=== PATIENT | male | born 1965 | race Two or more races ===

== ENCOUNTER → 2018-07-25 | Day surgery (SDC) | payer OTHER ==
--- NOTE | 2018-07-23 14:31 | Diagnostic Imaging Report ---
EXAM: ABDOMEN-1VIEW (KUB) DATE: 07/23/2018 1:02 PM INDICATION: Kidney stone COMPARISON: None FINDINGS: 2 supine views of the abdomen show a normal distribution of air in the small and large bowel. A right double-J ureteral stent extends from level of the right kidney to the bladder. There is a 1.5 x 0.8 cm calculus adjacent to the proximal aspect of the stent, at or just below the level of the renal pelvis. There is a 0.4 cm calcification projected on the left kidney, likely an intrarenal calculus. Calcifications in left hemipelvis are compatible with phleboliths. A focal sclerotic density in the proximal right femur likely represents a bone island. No acute bony abnormality. Partial sacralization of L5 on the left with pseudoarthrosis. IMPRESSION: 1. No bowel dilatation or evidence for bowel obstruction. 2. Right double-J ureteral stent. A 1.5 x 0.8 cm calculus adjacent to the proximal aspect of the stent is either in the renal pelvis or proximal right ureter. 3. 0.4 cm calculus in the left kidney. Signed by: Dr. Janes Prater M.D. on 07/23/2018 2:28 PM
[~2018-07-25] MED LIST: ACETAMINOPHEN325 M1 PO; CEFTRIAXONE SOD 1 GM/NS 50 ML 50 ML IV ONE; DEXAMETHASONE SOD PHOS INJ 4 MG/ML VIAL ONE; FENTANYL CITRATE/PF 100MCG/2 ML INJ ONE; FLOMAX0.4 MG PO; HYDRALAZINE HCL 20 MG/ML VIAL ONE; IOPAMIDOL 610MG/1ML 300 MG/ML VIAL IV ONE; LIDOCAINE HCL 2% LOCAL INJ 5 ML SDV VIAL INJ ONE; METOCLOPRAMIDE HCL 10 MG/2ML VIAL ONE; MIDAZOLAM HCL 2 MG/2 ML VIAL ONE; ONDANSETRON HCL INJ 2MG/ML 2ML 2 MG/ML VIAL ONE; PROPOFOL IV EMULSION 10 MG/ML 20 ML VIAL ONE; SEVOFLURANE INHAL SOLN 250 ML PEN BTL ONE
--- OUTSIDE RECORDS SUMMARY | 2018-07-25 05:53 | XMS REPORT ---
Author [facility] Address Unknown Phone Unavailable Care Team Providers Care Stiff Straw Hat Washer Name Role Phone TAISHA AVILES Unavailable Unavailable Payers Payer Name Policy Type Policy Number Effective Date Expiration Date Problems This patient has no known problems. Allergies, Adverse Reactions, Alerts This patient has no known allergies or adverse reactions. Medications This patient has no known medications. Encounters Start Date/Time End Date/Time Encounter Type Admission Type Attending [facility] Care Department Encounter ID 2018-07-17 22:42:00 2018-07-17 22:42:00 Outpatient [facility] [id number] 2018-07-15 11:48:00 2018-07-15 11:48:00 Outpatient [facility] URO [id number] 2018-07-11 18:30:00 2018-07-11 18:30:00 Outpatient [facility] [id number] 2017-04-23 00:00:00 2017-04-23 00:00:00 Outpatient [facility] [id number] 2017-03-28 00:00:00 2017-03-28 00:00:00 Outpatient [facility] [id number] 2015-08-23 13:11:08 2015-08-23 13:11:08 Outpatient [facility] [id number] Results Test Description Test Time Test Comments Text Results Atomic Results Result Comments ABDOMEN-1VIEW (KUB) 2018-07-23 14:24:00 [place] [address] Patient Name: CHARI ALLRED MR #: [id number] : 1965 Age/Sex: 52/M Req #: [id number] [facility] Physician: Ordered by: TAISHA AVILES MD Report #: [id number] Location: OR Room/Bed: Procedure: [id number] DX/ABDOMEN-1VIEW (KUB) Exam Date: Exam Time: REPORT STATUS: Signed EXAM: ABDOMEN-1VIEW (KUB) DATE: 07/23/2018 1:02 PM INDICAT ION: Kidney stone COMPARISON: None FINDINGS: 2 supine views of the abdomen show a normal distribution of air in the small and large bowel. A right double-J ureteral stent extends from level of the right kidney to the bladder. There is a 1.5 x 0.8 cm calculus adjacent to the proximal aspect of the stent, at or just below the level of the renal pelvis. There is a 0.4 cm calcification projected on the left kidney, likely an intrarenal calculus. Calcifications in left hemipelvis are compatible with phleboliths. A focal sclerotic density in the proximal right femur likely represents a bone island. No acute bony abnormality. Partial sacralization of L5 on the left with pseudoarthrosis. IMPRESSION: 1. No bowel dilatation or evidence for bowel obstruction. 2. Right double-J ureteral stent. A 1.5 x 0.8 cm calculus adjacent to the proximal aspect of the stent is either in the renal pelvis or proximal right ureter. 3. 0.4 cm calculus in the left kidney. Signed by: Dr. Deidre Ha M.D. on 07/23/2018 2:28 PM Dictated By: DEIDRE HA MD 27 Transcribed By: KANE on 07/23/181427 COPY TO: TAISHA AVILES MD - XR SWLW FUNC W/C V 2018-06-13 12:15:00 FAX: Sandra Tolentino MD [phone] [place]: St: REG Name: CHARI ALLRED [facility] Bisi Estrada : 1965 Age/S: 52/M [address] [place] [address] Unit #: [id number] Loc: [place] [address] Phys: Sandra Terry MD Acct: [id number] Dis Date: Status: REG CLI PHONE #: [phone] Exam Date: 06/13/2018 110 FAX #: [phone] Reason: R47.02 DYSPHAGIA, R19.8 REGURGITATION OF FOOD EXAMS: CPT CODE: [id number] XR SWW [facility] W/C V 10975 PROCEDURE: MODIFIED BARIUM SWALLOW INDICATION: 51-year-old male with dysphasia COMPARISON: None. TECHNIQUE: Fluoroscopy was provided for modified barium swallow performed by speech therapy. The patient was administered various consistencies of liquid barium and barium coated foods by mouth. FLUORO TIME: 0.2 minutes REFERENCE AIR KERMA: 0.67 mGy FINDINGS: No abnormality of the swallowing mechanism is demonstrated. No episodes of laryngeal penetration or aspiration. IMPRESSION: 1. Normal swallowing study. 2. Please refer to dedicated speech therapy report for details. SL: [id number] at 1215 Reported and signed by: Chel Lincoln M.D. CC: Sandra Terry Technologist: RT Irma(R) Trnscrd Date/Time/By: 06/13/2018 (7361) : By: Sonam AlvarezRH17 Orig Print D/T: S: 06/13/2018 (0886) PAGE 1 Signed Report
[2018-07-25 10:40] VITALS: BP 153/91
--- NOTE | 2018-07-25 18:27 | Operative Report ---
DATE OF PROCEDURE: 07/25/2018 SURGEON: Jake Fernandez MD PREOPERATIVE DIAGNOSES: 1. Indwelling right ureteral stent. 2. Right hydronephrosis. 3. Right renal calculus. POSTOPERATIVE DIAGNOSES: 1. Indwelling right ureteral stent. 2. Right hydronephrosis. 3. Right renal calculus. 4. Right ureteral calculus. PROCEDURES: 1. Cystoscopy with complicated removal of a right indwelling ureteral stent (separate procedure complicated secondary to encrustation). 2. Cystourethroscopy with manipulation of right ureteral calculus (entirely separate procedure for right ureteral calculus). 3. Cystourethroscopy with insertion of a right indwelling stent (high associated hydronephrosis). 4. Staged shockwave lithotripsy, right side (entirely separate procedure for right renal calculi). 5. Supervision of fluoroscopy. ANESTHESIA: General. ESTIMATED BLOOD LOSS: Minimal. COMPLICATION: None. INDICATIONS: Mr. Arceo is a very pleasant 52-year-old male with placement of an indwelling right ureteral stent secondary to a 1 cm right ureteral calculus and I had a long discussion about alternatives, risks, and benefits, including doing nothing, shockwave lithotripsy, ureteroscopy, percutaneous surgery or open surgery. He voiced understanding of the alternatives, risks and benefits. He elected to proceed. PROCEDURE IN DETAIL: After informed consent was obtained, the patient was taken to the operative suite and he was placed supine on the operating table. He underwent general anesthesia by Anesthesia Service. He was placed in the dorsal lithotomy position, sterilely prepped and draped in a sterile fashion for cystoscopy. A 21-Maori cystoscope was inserted per urethra. Stent was encrusted. A guidewire was inserted alongside the ureteral stent. The stent was removed intact. Utilizing a new stent, the ureteral calculus was manipulated into the renal pelvis. The stent was then deployed with coil in the pelvis and coil in the bladder. Lithotripsy head was then brought into position. A total of 3000 shocks on maximum power stetting were delivered to the stone. The patient tolerated the procedure well and was transferred to the recovery room in excellent condition. Supervision of fluoroscopy: I was present for the entire procedure and I supervised fluoroscopy for post stent removal and stent insertion portions of the procedure. There was no radiologist present. MD NILSA Lim/ANTONIETA /[id number] MTDD
== END | disposition home or self-care (01) ==
LOC: OR 05:51
PROVIDERS: ATTEND Urology
DX: N20.0 Calculus of kidney (principal); N13.30 Unspecified hydronephrosis; N20.1 Calculus of ureter; N28.1 Cyst of kidney, acquired; Z46.6 Encounter for fitting and adjustment of urinary device; I10 Essential (primary) hypertension; Z01.810 Encounter for preprocedural cardiovascular examination
CPT/HCPCS: 50590; 74018; 93005; C1874; J0360; J0696; J1100; J2001; J2250; J2405; J2765

== ENCOUNTER → 2018-09-05 | Day surgery (SDC) | payer OTHER ==
--- NOTE | 2018-09-04 13:20 | Diagnostic Imaging Report ---
EXAM: ABDOMEN-2 VIEWS INDICATION: Renal stone. COMPARISON: KUB 07/23/2018. FINDINGS: Right-sided internal ureteral stent with the proximal pigtail overlying the expected location of the renal pelvis and the distal pigtail overlying the bladder. Previously noted right proximal ureteral stone is no longer visualized. A 1.6 cm hyperdense structure near the distal aspect of the right ureteral stent may represent adjacent bowel loop rather than stone. Unchanged appearance of 4 mm calcification overlying the left kidney, likely representing stone. There are adjacent punctate stones. Pelvic calcified phleboliths. No acute osseous abnormality. IMPRESSION: Right internal ureteral stent. Previously noted 1.5 cm calculus in the proximal ureter is no longer visualized, which may reflect interval intervention. Hyperdense structure at the distal aspect of the ureteral stent is more likely to represent adjacent bowel loop than stone. If there has been no interval intervention, this may represent a ureteral stone. Left renal stones, measuring up to 4 mm. Signed by: Dr. Sera Menendez MD on 09/04/2018 1:17 PM
[~2018-09-05] MED LIST changes: -HYDRALAZINE HCL 20 MG/ML VIAL ONE; +HYDROCODONE/APAP 5MG-325MG TAB ONE; -METOCLOPRAMIDE HCL 10 MG/2ML VIAL ONE
[2018-09-05 10:00] VITALS: BP 147/94
--- NOTE | 2018-09-05 13:59 | Operative Report ---
DATE OF PROCEDURE: 09/05/2018 SURGEON: Jake Fernandez MD PREOPERATIVE DIAGNOSES: 1. Indwelling right ureteral stent. 2. Kidney stones. 3. Hematuria. POSTOPERATIVE DIAGNOSES: 1. Indwelling right ureteral stent. 2. Kidney stones. 3. Hematuria. PROCEDURES: 1. Cystourethroscopy complicated with removal of an indwelling stent in a staged fashion (entirely separate procedure for removal of stent in a staged fashion following lithotripsy). 2. Right-sided ureteroscopy in a staged fashion (entirely separate procedure for cleanup of right renal and ureteral calculi). 3. Supervision of fluoroscopy for both ureteroscopic and stent removal portion. 4. Interpretation of retrograde pyelography. ANESTHESIA: General. ESTIMATED BLOOD LOSS: Minimal. COMPLICATIONS: None. INDICATIONS FOR PROCEDURE: Mr. Arceo is a 52-year-old male with a previous lithotripsy and stent, now presenting for removal and second look ureteroscopy. He voiced understanding of the options, alternatives, risks and benefits and elected to proceed. PROCEDURE IN DETAIL: After informed consent was obtained, the patient was taken to the operative suite, he was placed supine on the operating table, he underwent general anesthesia by Anesthesia service, placed in dorsal lithotomy position, and sterilely prepped and draped for cystoscopy. A 21-Lithuanian cystoscope was inserted per urethra and normal urethra was noted. Panendoscopy of the bladder revealed no tumors and no stones. Stent was seen extruding through the right ureteral orifice. It was encrusted. Guidewire was inserted alongside the stent. Stent was grasped and was removed. Attempt was made to catheterize the stent with a second safety wire, this failed. The lumen was then utilized and second safety wire was introduced. Flexible ureteroscope was advanced to the level of the renal pelvis and calices were mapped and the collecting system was examined. There was some small Derek's plaques seen. Otherwise normal collecting system. Scope was withdrawn. Safety wire was removed. The bladder was drained. The patient was awakened from anesthesia and transported to the recover room in excellent condition. Supervision of fluoroscopy and interpretation ventriculography: I was present for the entire procedure and I supervised fluoroscopy. There was no radiologist present. Attention was turned towards the right ureteral orifice, which was catheterized with a ureteroscope. Retrograde pyelogram was performed revealing dilated collecting system, interim removal of ureteral calculi, interim removal of stent. MD NILSA Lim/ANTONIETA /[id number]
== END | disposition home or self-care (01) ==
LOC: OR 05:00
PROVIDERS: ATTEND Urology
DX: N20.0 Calculus of kidney (principal); Z46.6 Encounter for fitting and adjustment of urinary device; N13.39 Other hydronephrosis; N28.1 Cyst of kidney, acquired; N28.89 Other specified disorders of kidney and ureter; K44.9 Diaphragmatic hernia without obstruction or gangrene; I10 Essential (primary) hypertension
CPT/HCPCS: 74018; 74420; J0696; J1100; J2001; J2250; J2405